=== PATIENT | male | born 1940 | race Hispanic/Latino ===

== ENCOUNTER 2021-09-16 08:02 | Outpatient (CLI) | payer OTHER | END 2021-09-16 08:03 | disposition home or self-care (01) | LOC: SCSRAD 08:02 | PROVIDERS: ATTEND Family Medicine | DX: M25.561 Pain in right knee (principal); M25.562 Pain in left knee ==

== ENCOUNTER 2021-10-19 07:47 | Day surgery (SDC) | payer MEDICARE ==
[2021-10-14 10:36] VITALS: BMI 22.4
[2021-10-19] MEDS ORDERED: diphenhydrAMINE 25 MG CAP ONE ×2 (08:34→10:23)
[2021-10-19] MEDS: diphenhydrAMINE 25 MG CAP PO SCH ×2 (08:45→10:20)
[2021-10-19 09:52] VITALS: BP 171/54
== END 2021-10-19 11:55 | disposition home or self-care (01) ==
LOC: SPEC 07:47
PROVIDERS: ATTEND Specialist
PROC: B51W1ZZ Fluoroscopy of Dialysis Shunt/Fistula using Low Osmolar Contrast (ICD-10-PCS; principal; 2021-10-19)
PROC: 05733ZZ Dilation of Right Innominate Vein, Percutaneous Approach (ICD-10-PCS; 2021-10-19)
DX: N18.6 End stage renal disease (principal); I87.8 Other specified disorders of veins; Z79.82 Long term (current) use of aspirin; Z79.899 Other long term (current) drug therapy; Z99.2 Dependence on renal dialysis
CPT/HCPCS: 36901; 36902; 75820; 76937; C1725

== ENCOUNTER 2021-11-07 15:12 | Outpatient (CLI) | payer MEDICARE | END 2021-11-07 15:13 | disposition home or self-care (01) | LOC: LABBT 15:12 | PROVIDERS: ATTEND Specialist | DX: T82.590A Other mechanical complication of surgically created arteriovenous fistula, initial encounter (principal); N18.6 End stage renal disease; Z20.822 Contact with and (suspected) exposure to COVID-19 | CPT/HCPCS: U0003; U0005 ==

== ENCOUNTER 2021-11-11 07:14 | Day surgery (SDC) | payer MEDICARE ==
[2021-11-08 12:40] VITALS: BMI 24.7
[2021-11-11] MEDS ORDERED: Bupivacaine PF 0.5% 30 ML VIAL ONE (07:41)
[2021-11-11] MEDS ORDERED: Lidocaine 1% w/Epinephrine 1:100K 20 ML VIAL ONE (07:41)
[2021-11-11] MEDS ORDERED: Protamine Sulfate 50 MG/5 ML VIAL ONE (07:41)
[2021-11-11] MEDS ORDERED: Heparin 5,000 UNITS/ML VIAL ONE (07:41)
[2021-11-11 08:17] LABS: #Eosinphils 0.6 thou/uL (0.0-0.7); #Lymphocytes 0.7 thou/uL (1.20-3.40); #Monocytes 0.4 thou/uL (0.11-0.59); #Neutrophils 1.8 thou/uL (1.40-6.50); %Basophils 1.2 % (0.0-1.0); %Eosinophils 17.8 % (0.0-10.0); %Lymphocytes 19.1 % (21.0-51.0); %Monocytes 11.2 % (0.0-10.0); %Neutrophils 50.7 % (42.0-75.0); Hemoglobin 8.7 g/dL (14.0-18.0); Mean Corpuscular HGB CONC 31.5 g/dL (32.0-36.0); Mean Corpuscular Hemoglobin 29.3 pg (27.0-31.0); Mean Corpuscular Volume 92.9 fL (78.0-98.0); Mean Platelet Volume 8.8 fL (7.4-10.4); Platelet Count 91 thou/uL (130-400); RBC Distribution Width 14.1 % (11.5-14.5); Red Blood Cell (RBC) Count 2.97 mill/uL (4.70-6.10); White Blood Cell (WBC) Count 3.5 thou/uL (4.8-10.8)
[2021-11-11 08:34] LABS: Anion Gap 19 mmol/L (10-20); BUN (Urea Nitrogen) 36 mg/dL (8.4-25.7); Calc. Creatinine Clearance 9 mL/min (70-130); Calcium 8.4 mg/dL (7.8-10.44); Carbon Dioxide 27 mmol/L (23-31); Chloride 101 mmol/L (98-107); Glucose 93 mg/dL (83-110); Potassium 4.7 mmol/L (3.5-5.1); Sodium 142 mmol/L (136-145)
[2021-11-11] MEDS ORDERED: fentaNYL Citrate/PF 100 MCG/2 ML SYRINGE ONE (09:25)
[2021-11-11] MEDS ORDERED: Midazolam HCl 2 mg/2 ml Vial ONE (09:25)
[2021-11-11] MEDS ORDERED: Propofol 500 MG/50 ML VIAL ONE (09:25)
[2021-11-11] MEDS ORDERED: Heparin 1,000 UNITS/ML VIAL ONE (11:33)
== END 2021-11-11 11:50 | disposition home or self-care (01) ==
LOC: SDC 07:14
PROVIDERS: ATTEND Specialist
PROC: 031C0ZF Bypass Left Radial Artery to Lower Arm Vein, Open Approach (ICD-10-PCS; principal; 2021-11-11)
DX: I12.0 Hypertensive chronic kidney disease with stage 5 chronic kidney disease or end stage renal disease (principal); E11.22 Type 2 diabetes mellitus with diabetic chronic kidney disease; N18.6 End stage renal disease; D63.1 Anemia in chronic kidney disease; T82.590A Other mechanical complication of surgically created arteriovenous fistula, initial encounter; I87.1 Compression of vein; E78.5 Hyperlipidemia, unspecified; M10.9 Gout, unspecified; Z86.16 Personal history of COVID-19; Z79.82 Long term (current) use of aspirin; Z79.899 Other long term (current) drug therapy
CPT/HCPCS: 36821; 80048; 85025; C1776; J1644; J2250; J2704; J2720; S0020

== ENCOUNTER 2022-02-28 13:54 | Outpatient (CLI) | payer OTHER | END 2022-02-28 13:55 | disposition home or self-care (01) | LOC: LABBT 13:54 | PROVIDERS: ATTEND Specialist | DX: Z01.818 Encounter for other preprocedural examination (principal); Z20.822 Contact with and (suspected) exposure to COVID-19 | CPT/HCPCS: 87811; 93005; 93010 ==

== ENCOUNTER 2022-03-03 07:37 | Day surgery (SDC) | payer OTHER, MEDICARE ==
[2022-03-01 13:33] VITALS: BMI 25.3
[2022-03-03 08:37] LABS: #Eosinphils 0.2 thou/uL (0.0-0.7); #Lymphocytes 0.8 thou/uL (1.20-3.40); #Monocytes 0.4 thou/uL (0.11-0.59); #Neutrophils 2.3 thou/uL (1.40-6.50); %Basophils 0.5 % (0.0-1.0); %Eosinophils 5.1 % (0.0-10.0); %Lymphocytes 22.1 % (21.0-51.0); %Monocytes 10.9 % (0.0-10.0); %Neutrophils 61.5 % (42.0-75.0); Hemoglobin 12.7 g/dL (14.0-18.0); Mean Corpuscular HGB CONC 30.2 g/dL (32.0-36.0); Mean Corpuscular Hemoglobin 27.1 pg (27.0-31.0); Mean Corpuscular Volume 89.7 fL (78.0-98.0); Mean Platelet Volume 11.2 fL (7.4-10.4); Platelet Count 125 thou/uL (130-400); RBC Distribution Width 16.6 % (11.5-14.5); Red Blood Cell (RBC) Count 4.68 mill/uL (4.70-6.10); White Blood Cell (WBC) Count 3.7 thou/uL (4.8-10.8)
[2022-03-03] MEDS ORDERED: Bupivacaine HCl 0.5%/Epinephrine 1:200,000/PF 30 ml Vial ONE (08:46)
[2022-03-03] MEDS ORDERED: Protamine Sulfate 50 MG/5 ML VIAL ONE (08:46)
[2022-03-03] MEDS ORDERED: Heparin 5,000 UNITS/ML VIAL ONE (08:46)
[2022-03-03] MEDS ORDERED: Famotidine/PF 20 mg/2ml Vial ONE (08:49)
[2022-03-03] MEDS ORDERED: fentaNYL Citrate/PF 100 MCG/2 ML SYRINGE ONE (08:49)
[2022-03-03 08:50] LABS: Anion Gap 20 mmol/L (10-20); BUN (Urea Nitrogen) 61 mg/dL (8.4-25.7); Calc. Creatinine Clearance 8 mL/min (70-130); Calcium 8.4 mg/dL (7.8-10.44); Carbon Dioxide 23 mmol/L (23-31); Chloride 97 mmol/L (98-107); Estimated GFR 7; Glucose 107 mg/dL (83-110); Potassium 5.3 mmol/L (3.5-5.1); Sodium 135 mmol/L (136-145)
[2022-03-03] MEDS ORDERED: CEFAZOLIN 2 GM VIAL ONE (09:07)
[2022-03-03] MEDS ORDERED: Sodium Chloride 0.9% 100 ML ONE (09:07)
[2022-03-03] MEDS ORDERED: PHENYLEPHRINE-NS 100 MCG/ML 10 ML SYRINGE ONE (09:17)
[2022-03-03] MEDS ORDERED: Lidocaine 1% MPF 2 ML VIAL ONE (09:17)
[2022-03-03] MEDS ORDERED: Ondansetron PF 4 MG/2 ML Vial ONE (09:17)
[2022-03-03] MEDS ORDERED: PROPOFOL 200 MG/20 ML VIAL ONE (09:17)
[2022-03-03] MEDS ORDERED: Metoclopramide HCl 10 MG/2 ML VIAL ONE (09:17)
== END 2022-03-03 12:00 | disposition home or self-care (01) ==
LOC: SDC 07:37
PROVIDERS: ATTEND Specialist
PROC: 05LY0ZZ Occlusion of Upper Vein, Open Approach (ICD-10-PCS; principal; 2022-03-03)
DX: T82.510A Breakdown (mechanical) of surgically created arteriovenous fistula, initial encounter (principal); I87.1 Compression of vein; I12.0 Hypertensive chronic kidney disease with stage 5 chronic kidney disease or end stage renal disease; E11.22 Type 2 diabetes mellitus with diabetic chronic kidney disease; N18.6 End stage renal disease; D63.1 Anemia in chronic kidney disease; E78.5 Hyperlipidemia, unspecified; M10.9 Gout, unspecified; Z86.16 Personal history of COVID-19; Z79.82 Long term (current) use of aspirin; Z79.899 Other long term (current) drug therapy; Z99.2 Dependence on renal dialysis; Y81.3 Surgical instruments, materials and general- and plastic-surgery devices (including sutures) associated with adverse incidents
CPT/HCPCS: 37607; 80048; 85025; C1776; J0690; J1644; J2405; J2704; J2720; J2765; J3490; S0028